=== PATIENT | male | born 1995 | race Two or more races ===

== ENCOUNTER 2023-06-21 03:47 | Emergency (ER) | payer OTHER ==
[~2023-06-21] VITALS: Ht 160 cm; Wt 65.8 kg
== END 2023-06-21 08:23 | disposition home or self-care (01) ==
LOC: ER 03:47
DX: S51.811A Laceration without foreign body of right forearm, initial encounter (principal); W26.8XXA Contact with other sharp object(s), not elsewhere classified, initial encounter; Y93.9 Activity, unspecified; Y92.9 Unspecified place or not applicable; Y99.9 Unspecified external cause status

== ENCOUNTER → 2023-06-28 | Emergency (ER) | payer OTHER ==
[~2023-06-28] VITALS: Ht 160 cm; Wt 65.8 kg
== END | disposition home or self-care (01) ==
LOC: ER 08:57
DX: Z48.02 Encounter for removal of sutures (principal)